=== PATIENT | female | born 1965 | race American Indian/Alaskan Native ===

== ENCOUNTER 2017-06-10 18:47 | Emergency (ER) | payer OTHER ==
[2017-06-10 18:57] VITALS: BP 118/80; PULSE 80; RESP 18; TEMP 98.1; O2SAT 95
[2017-06-10 18:58] VITALS: BMI 26.6
[2017-06-10] MEDS ORDERED: Naproxen 550 mg Tab PO STA (20:17)
--- NOTE | 2017-06-10 20:20 | ED PDOC ---
Arrival/HPI - General Historian: Patient - History of Present Illness Time/Duration: Other (see hpi) Context: Home - General Chief Complaint: ENT Problem Time Seen by Provider: 06/10/17 20:15 - History of Present Illness Narrative History of Present Illness (Text): 06/10/17 20:15 This 51 yo female presents to this Emergency department complaining of right maxillary pain x 2 days. Patient stated she had similar symptoms in the past when she was Dx. with sinusitis. Patient stated pain radiates to her right ear. Patient denies headache, sore throat, or dental pain. Denies fever, sob, cp or abdominal pain. (Ronnie Jose) Past Medical History - Provider Review Nursing Documentation Reviewed: Yes - Infectious Disease Hx of Infectious Diseases: None - Tetanus Immunization Tetanus Immunization: Unknown - Past Medical History Past Medical History: No Previous - Psychiatric Hx Substance Use: No Other/Comment: attention deficit - Surgical History Hx Orthopedic Surgery: Yes (foot) Other/Comment: nose sx - Anesthesia Hx Anesthesia: Yes Hx Anesthesia Reactions: No Hx Malignant Hyperthermia: No - Suicidal Assessment Feels Threatened In Home Enviroment: No Family/Social History - Physician Review Nursing Documentation Reviewed: Yes Family/Social History: Other (nocontributory) Smoking Status: Never Smoked Hx Alcohol Use: No Hx Substance Use: No Hx Substance Use Treatment: No Allergies/Home Meds Allergies/Adverse Reactions: Allergies No Known Allergies Allergy (Verified 01/31/14 13:23) Home Medications: Home Meds Medication Instructions Recorded Confirmed Amphetamine Salt Combination 10 mg PO TID 01/31/14 10/08/15 [Adderall] Mometasone Furoate [Nasonex] 2 spray LUIS BID 10/08/15 10/08/15 Review of Systems - Review of Systems Constitutional: Normal. absent: Fatigue, Weight Change, Fevers Eyes: Normal ENT: Normal Respiratory: Normal Cardiovascular: Normal Gastrointestinal: Normal Genitourinary Female: Normal Musculoskeletal: Other (see hpi) Skin: Normal Neurological: Normal Endocrine: Normal Hemo/Lymphatic: Normal Psychiatric: Normal Physical Exam Temperature: Afebrile Blood Pressure: Normal Pulse: Regular Respiratory Rate: Normal Appearance: Positive for: Well-Appearing, Non-Toxic, Comfortable Pain Distress: None Mental Status: Positive for: Alert and Oriented X 3 - Systems Exam Head: Present: Atraumatic, Normocephalic, Other ((+) mild right maxillary sinus tenderness. No erythema, or skin rash, no facial swelling) Pupils: Present: PERRL Extroacular Muscles: Present: EOMI Conjunctiva: Present: Normal Ears: Present: Normal, NORMAL TM, Normal Canal. No: Erythema, TM Bulging, Fluid , TM Perf Mouth: Present: Moist Mucous Membranes, Normal Lips, Normal Tounge, Normal Teeth. No: Drooling Pharnyx: Present: Normal. No: ERYTHEMA, EXUDATE, TONSILS ENLARGED Nose (External): Present: Atraumatic Nose (Internal): Present: Normal Inspection Neck: Present: Normal Range of Motion. No: Meningeal Signs, MIDLINE TENDERNESS Respiratory/Chest: Present: Clear to Auscultation, Good Air Exchange, Respiratory Distress, Accessory Muscle Use. No: Wheezes, Rales, Retracting Cardiovascular: Present: Regular Rate and Rhythm, Normal S1, S2. No: Murmurs Abdomen: No: Tenderness Upper Extremity: Present: Normal Inspection, Normal ROM Lower Extremity: Present: Normal Inspection, Normal ROM Neurological: Present: GCS=15, CN II-XII Intact, Speech Normal, Motor Func Grossly Intact, Normal Sensory Function, Normal Cerebellar Funct, Gait Normal Skin: Present: Warm, Dry, Normal Color. No: Rashes Psychiatric: Present: Alert, Oriented x 3, Normal Insight, Normal Concentration Vital Signs Temp Pulse Resp BP Pulse Ox 06/10/17 18:56 98.1 F 80 18 118/80 95 Medical Decision Making Re-evaluation Time: 20:22 Reassessment Condition: Re-examined, Improved ED Course and Treatment: 06/10/17 20:22 Re-evaluation. Patient feels better. Discussed results and plan with patient who expresses understanding. All questions answered and there is agreement with the plan to discharge home with instructions. Patient stable for discharge. Return if symptoms persist or worsen. (Ronnie Jose) - Medication Orders Current Medication Orders: Discontinued Medications Amoxicillin (Amoxil 500 Mg Cap) 500 mg PO STAT STA PRN Reason: Protocol Stop: 06/10/17 20:18 Last Admin: 06/10/17 20:33 Dose: 500 mg Naproxen (Anaprox Ds) 550 mg PO STAT STA Stop: 06/10/17 20:18 Last Admin: 06/10/17 20:33 Dose: 550 mg Disposition/Present on Arrival - Present on Arrival Any Indicators Present on Arrival: No History of DVT/PE: No History of Uncontrolled Diabetes: No Urinary Catheter: No History of Decub. Ulcer: No History Surgical Site Infection Following: None - Disposition Have Diagnosis and Disposition been Completed?: Yes Disposition Time: 20:22 Patient Plan: Discharge - Disposition Diagnosis: Maxillary sinusitis Disposition: HOME/ ROUTINE Condition: GOOD Discharge Instructions (ExitCare): Sinusitis (ED) Additional Instructions: Call private doctor for follow up visit in 1-2 days. make sure to see your ENT on Saturday as scheduled by you. return to emergency if symptoms worsen. Prescriptions: Amoxicillin [Amoxil 500 mg Cap] 500 mg PO TID #30 cap Famotidine [Pepcid] 40 mg PO DAILY #10 tablet Naproxen 500 mg PO BID PRN #14 tab PRN Reason: Pain, Severe (8-10) Referrals: [facility] Philomena Matthews, [Non-Staff] - Follow up with primary Shayan Dixon DO [Doctor Osteopathy] - Follow up with primary Forms: Take the Interview ([place])
== END 2017-06-10 20:36 | disposition home or self-care (01) ==
LOC: ED 18:47
DX: J32.0 Chronic maxillary sinusitis (principal)

== ENCOUNTER 2017-11-10 01:50 | Emergency (ER) | payer OTHER ==
[2017-11-10 02:08] VITALS: BMI 28.1
[2017-11-10 02:15] VITALS: RESP 18
[2017-11-10] MEDS ORDERED: Sodium Chloride 0.9% 1,000 ML IV STA (02:19)
--- NOTE | 2017-11-10 02:19 | ED PDOC ---
Arrival/HPI - General Chief Complaint: Weakness/Neurological Deficit Time Seen by Provider: 11/10/17 01:59 Historian: Patient - History of Present Illness Narrative History of Present Illness (Text): 11/10/17 02:14 52 year old female, with no significant past medical, presents to the emergency department complaining of generalized malaise that began this morning. Patient states she had a tuna fish sandwich earlier which she feels may have provided her symptoms. Patient also states she felt slightly dizzy earlier and her mouth feels dry. Patient reports nausea and diarrhea, but denies any fever, chills, chest pain, shortness of breath, urinary symptoms, back pain, neck pain, headache, or any other complaints. PMD: Dr. Abram Carney Symptom Onset: Gradual Symptom Course: Unchanged Activities at Onset: Light Context: Home Past Medical History - Provider Review Nursing Documentation Reviewed: Yes - Infectious Disease Hx of Infectious Diseases: None - Tetanus Immunization Tetanus Immunization: Unknown - Past Medical History Past Medical History: No Previous - Psychiatric Hx Substance Use: No Other/Comment: attention deficit - Surgical History Hx Orthopedic Surgery: Yes (foot) Other/Comment: nose sx - Anesthesia Hx Anesthesia: Yes Hx Anesthesia Reactions: No Hx Malignant Hyperthermia: No - Suicidal Assessment Feels Threatened In Home Enviroment: No Family/Social History - Physician Review Nursing Documentation Reviewed: Yes Family/Social History: No Known Family HX Smoking Status: Never Smoked Hx Alcohol Use: No Hx Substance Use: No Hx Substance Use Treatment: No Allergies/Home Meds Allergies/Adverse Reactions: Allergies No Known Allergies Allergy (Verified 11/10/17 02:08) Home Medications: Home Meds Medication Instructions Recorded Confirmed Amphetamine Salt Combination 10 mg PO TID 01/31/14 10/08/15 [Adderall] Mometasone Furoate [Nasonex] 2 spray LUIS BID 10/08/15 10/08/15 Review of Systems - Physician Review All systems were reviewed & negative as marked: Yes - Review of Systems Constitutional: absent: Fevers, Other (Chills) Respiratory: absent: SOB Cardiovascular: absent: Chest Pain Gastrointestinal: Diarrhea, Nausea. absent: Abdominal Pain, Vomiting Genitourinary Female: absent: Dysuria, Frequency, Hematuria Musculoskeletal: Other (generlized malaise ). absent: Back Pain, Neck Pain Neurological: Dizziness. absent: Headache Physical Exam Vital Signs Reviewed: Yes Vital Signs Temp Pulse Resp BP Pulse Ox 11/10/17 04:30 92 H 18 115/78 98 11/10/17 02:13 98.3 F 86 18 119/68 100 Temperature: Afebrile Blood Pressure: Normal Pulse: Regular Respiratory Rate: Normal Appearance: Positive for: Well-Appearing, Non-Toxic, Comfortable Pain Distress: None Mental Status: Positive for: Alert and Oriented X 3 - Systems Exam Head: Present: Atraumatic, Normocephalic Pupils: Present: PERRL Extroacular Muscles: Present: EOMI Conjunctiva: Present: Normal Mouth: Present: Moist Mucous Membranes Neck: Present: Normal Range of Motion Respiratory/Chest: Present: Clear to Auscultation, Good Air Exchange. No: Respiratory Distress, Accessory Muscle Use Cardiovascular: Present: Regular Rate and Rhythm, Normal S1, S2. No: Murmurs Abdomen: No: Tenderness, Distention, Peritoneal Signs Back: Present: Normal Inspection Upper Extremity: Present: Normal Inspection. No: Cyanosis, Edema Lower Extremity: Present: Normal Inspection. No: Edema Neurological: Present: GCS=15, CN II-XII Intact, Speech Normal Skin: Present: Warm, Dry, Normal Color. No: Rashes Psychiatric: Present: Alert, Oriented x 3, Normal Insight, Normal Concentration Medical Decision Making ED Course and Treatment: 11/10/17 02:14 Impression: 52 year old female presents complaining of generalized malaise that began this morning associated with slight dizziness, nausea, diarrhea, and mouth feels dry. Plan: -- Labs -- Gluxose, POC Routine -- Pepcid, IV Fluids, Zofran Inj -- EKG -- Reassess and disposition Progress Notes: 11/10/17 02:00 EKG shows NSR at 85 BPM with no acute changes. Interpreted by me. 11/10/17 05:49 On reevaluation the patient feels better and is in no acute distress. I have discussed the results and plan with the patient, who expresses understanding. Patient given the opportunity to ask question, all questions were answered and there is agreement with the plan to discharge the patient home. Patient is stable for discharge. Patient was instructed to follow up with physician/clinic or return if symptoms persist/worsen or new concerning symptoms arise. - Lab Interpretations Lab Results: 11/10/17 03:00 11/10/17 03:00 Lab Results 11/10/17 03:00: WBC 8.4, RBC 4.87, Hgb 14.3, Hct 42.2, MCV 86.7, MCH 29.4, MCHC 33.9, RDW 13.5, Plt Count 235, MPV 9.7 11/10/17 03:00: Sodium 142, Potassium 5.1 H, Chloride 107, Carbon Dioxide 27, Anion Gap 13, BUN 15, Creatinine 0.8, Est GFR ( Amer) > 60, Est GFR (Non- Af Amer) > 60, Random Glucose 104, Calcium 9.5, Total Bilirubin 0.9, AST 26, ALT 41, Alkaline Phosphatase 80, Total Protein 7.2, Albumin 4.3, Globulin 2.9, Albumin/Globulin Ratio 1.5, Lipase 72 11/10/17 02:23: POC Glucose (mg/dL) 74 I have reviewed the lab results: Yes - EKG Interpretation Interpreted by ED Physician: Yes Type: 12 lead EKG - Medication Orders Current Medication Orders: Discontinued Medications Famotidine (Pepcid) 20 mg IVP STAT STA Stop: 11/10/17 02:20 Last Admin: 11/10/17 02:22 Dose: 20 mg IVP Administration Document 11/10/17 02:22 (Rec: 11/10/17 03:17 [facility] [id number]) Charges for Administration # of IVP Administrations 1 Sodium Chloride (Sodium Chloride 0.9%) 1,000 mls @ 999 mls/hr IV .Q1H1M STA Stop: 11/10/17 03:19 Last Admin: 11/10/17 02:27 Dose: 999 mls/hr eMAR Start Stop Document 11/10/17 02:27 (Rec: 11/10/17 03:24 [facility] [id number]) Intravenous Solution Start Date 11/10/17 Start Time 02:27 Ondansetron HCl (Zofran Inj) 4 mg IVP ONCE ONE Stop: 11/10/17 02:20 Last Admin: 11/10/17 02:20 Dose: 4 mg IVP Administration Document 11/10/17 02:20 (Rec: 11/10/17 03:16 [facility] [id number]) Charges for Administration # of IVP Administrations 1 Ondansetron HCl (Zofran Inj) 4 mg IVP ONCE ONE Stop: 11/10/17 05:16 Last Admin: 11/10/17 05:18 Dose: 4 mg IVP Administration Document 11/10/17 05:18 CANDACE (Rec: 11/10/17 05:52 [facility] [id number] Charges for Administration # of IVP Administrations 1 - Scribe Statement The provider has reviewed the documentation as recorded by the Akhilibsierra Rhoades Provider Scribe Attestation: All medical record entries made by the Scribe were at my direction and personally dictated by me. I have reviewed the chart and agree that the record accurately reflects my personal performance of the history, physical exam, medical decision making, and the department course for this patient. I have also personally directed, reviewed, and agree with the discharge instructions and disposition. Disposition/Present on Arrival - Present on Arrival Any Indicators Present on Arrival: No History of DVT/PE: No History of Uncontrolled Diabetes: No Urinary Catheter: No History of Decub. Ulcer: No History Surgical Site Infection Following: None - Disposition Have Diagnosis and Disposition been Completed?: Yes Diagnosis: Gastroenteritis Disposition: HOME/ ROUTINE Disposition Time: 05:49 Patient Plan: Discharge Patient Problems: Current Active Problems Problem Status Onset Gastroenteritis Acute Condition: GOOD Additional Instructions: Drink small amounts of liquids at a time/take meds as prescribed/advance to bland diet slowly as tolerated/follow up with your doctor/any recurrent severe symptoms return to the emergency room Prescriptions: Ondansetron [Zofran Odt] 4 mg PO Q6 PRN #12 odt PRN Reason: Nausea/Vomiting Referrals: [id number] [Other] - Follow up with primary Forms: [employer] (Azeri)
[2017-11-10 03:14] LABS: HEMOGLOBIN 14.3 g/dL (12.0-16.0); MEAN CELL VOLUME 86.7 fl (80.0-105.0); MEAN CORPUSCULAR HEMOGLOBIN 29.4 pg (25.0-35.0); MEAN CORPUSCULAR HGB CONC 33.9 g/dl (31.0-37.0); MEAN PLATELET VOLUME 9.7 fl (7.0-11.0); RBC 4.87 10^6/uL (3.5-6.1); RED CELL DISTRIBUTION WIDTH 13.5 % (11.5-14.5); WHITE BLOOD COUNT 8.4 10^3/ul (4.5-11.0)
[2017-11-10 03:19] LABS: ALB/GLOB RATIO 1.5 (1.1-1.8); ALBUMIN 4.3 g/dL (3.0-4.8); ALT/SGPT 41 U/L (7-56); AST/SGOT 26 U/L (14-36); BLOOD UREA NITROGEN 15 mg/dL (7-21); CALCIUM 9.5 mg/dL (8.4-10.5); GFR AFRICAN-AMERICAN > 60; GFR NON-AFRICAN AMERICAN > 60; LIPASE 72 U/L (23-300)
[2017-11-10 06:19] VITALS: BP 118/68; PULSE 89; TEMP 98.6; O2SAT 96
--- NOTE | 2017-11-10 17:03 | CARD ---
APPROVED REPORT Date of service: 11/10/2017 EKG Measurement Heart [id number] <Conclusion> Normal sinus rhythm Normal ECG
== END 2017-11-10 06:24 | disposition home or self-care (01) ==
LOC: ED 01:50
DX: K52.9 Noninfective gastroenteritis and colitis, unspecified (principal)
CPT/HCPCS: 80053; 82948; 83690; 85027; 93005; 96374; 96375; 96376; 99285; J2405; J7030

== ENCOUNTER 2018-02-28 23:02 | Emergency (ER) | payer OTHER ==
[2018-02-28 23:20] VITALS: TEMP 98.2; BMI 28.5
[2018-02-28] MEDS ORDERED: DiphenhydrAMINE 50 mg/ml Inj IVP STA (23:33)
--- NOTE | 2018-02-28 23:37 | ED PDOC ---
Arrival/HPI - General Chief Complaint: Abnormal Skin Integrity Time Seen by Provider: 02/28/18 23:33 Historian: Patient - History of Present Illness Narrative History of Present Illness (Text): 02/28/18 23:36 52 yo F reports acute onset of diffuse erythematous pruritic rash to her entire body sparing her face, palms and soles x 1 day, which started abruptly. Otherwise patient reports (-) throat swelling, (-) tongue / lip swelling, (-) dyspnea, (-) cough, (-) wheezing, (-) abdominal pain, (-) nausea (-) vomiting. There has been no known exposure to any allergens, however the patient admits to eating Halloween candy x 2-3 days. The patient has no history of allergic reactions. PMD Rommel Past Medical History - Infectious Disease Hx of Infectious Diseases: None - Tetanus Immunization Tetanus Immunization: Unknown - Past Medical History Past Medical History: No Previous - Cardiac Hx Cardiac Disorders: No - Pulmonary Hx Respiratory Disorders: No - Neurological Hx Neurological Disorder: No - HEENT Hx HEENT Disorder: No - Renal Hx Renal Disorder: No - Endocrine/Metabolic Hx Endocrine Disorders: No - Hematological/Oncological Hx Blood Disorders: No - Integumentary Hx Dermatological Disorder: No - Musculoskeletal/Rheumatological Hx Musculoskeletal Disorders: No - Gastrointestinal Hx Gastrointestinal Disorders: No - Genitourinary/Gynecological Hx Genitourinary Disorders: No - Psychiatric Hx Psychophysiologic Disorder: Yes Hx Substance Use: No Other/Comment: attention deficit - Surgical History Hx Orthopedic Surgery: Yes (foot) Other/Comment: nose sx - Anesthesia Hx Anesthesia: Yes Hx Anesthesia Reactions: No Hx Malignant Hyperthermia: No - Suicidal Assessment Feels Threatened In Home Enviroment: No Family/Social History Family/Social History: No Known Family HX Smoking Status: Never Smoked Hx Alcohol Use: No Hx Substance Use: No Hx Substance Use Treatment: No Allergies/Home Meds Allergies/Adverse Reactions: Allergies No Known Allergies Allergy (Verified 02/28/18 23:20) Home Medications: Home Meds Medication Instructions Recorded Confirmed Amphetamine Salt Combination 10 mg PO DAILY 02/28/18 02/28/18 [Adderall] Review of Systems - Review of Systems Constitutional: absent: Fatigue, Fevers Respiratory: absent: SOB, Cough Cardiovascular: absent: Chest Pain, Palpitations Gastrointestinal: absent: Abdominal Pain, Diarrhea, Vomiting Musculoskeletal: absent: Arthralgias, Back Pain, Neck Pain Skin: Rash, Pruritis. absent: Skin Lesions Physical Exam Vital Signs Temp Pulse Resp BP Pulse Ox 02/28/18 23:18 98.2 F 74 18 108/74 96 Temperature: Afebrile Blood Pressure: Normal Pulse: Regular Respiratory Rate: Normal Appearance: Positive for: Well-Appearing, Non-Toxic, Comfortable Pain Distress: None Mental Status: Positive for: Alert and Oriented X 3 - Systems Exam Head: Present: Atraumatic, Normocephalic Pupils: Present: PERRL Extroacular Muscles: Present: EOMI Conjunctiva: Present: Normal Mouth: Present: Moist Mucous Membranes Neck: Present: Normal Range of Motion Respiratory/Chest: Present: Clear to Auscultation, Good Air Exchange. No: Respiratory Distress, Accessory Muscle Use Cardiovascular: Present: Regular Rate and Rhythm, Normal S1, S2. No: Murmurs Abdomen: No: Tenderness, Distention, Peritoneal Signs Back: Present: Normal Inspection Upper Extremity: Present: Normal Inspection. No: Cyanosis, Edema Lower Extremity: Present: Normal Inspection. No: Edema Neurological: Present: GCS=15, CN II-XII Intact, Speech Normal Skin: Present: Warm, Dry, Rashes (+urticarial rash to the trunk and all 4 extrem ities), Normal Color Psychiatric: Present: Alert, Oriented x 3, Normal Insight, Normal Concentration Medical Decision Making ED Course and Treatment: 02/28/18 23:34 Plan : - benadryl IV - solumedrol IV - pepcid IV On reevaluation, patient reports improvement of symptoms, denies any SOB, facial or throat swelling. On exam, patient remains awake alert and oriented 3 in no acute distress with noted improvement of rash on exam. Advised to follow up with primary care physician in 1-2 days without fail. Advised to take medication as prescribed. Return to the emergency room at any time for any new or worsening symptoms. Patient states she fully agrees with and understands discharge instructions. States that she agrees with the plan and disposition. Verbalized and repeated discharge instructions and plan. I have given the patient opportunity to ask any additional questions. - PA / RELEASE SPECIALIST / Resident Statement MD/DO has reviewed & agrees with the documentation as recorded. Disposition/Present on Arrival - Present on Arrival Any Indicators Present on Arrival: No History of DVT/PE: No History of Uncontrolled Diabetes: No Urinary Catheter: No History of Decub. Ulcer: No History Surgical Site Infection Following: None - Disposition Have Diagnosis and Disposition been Completed?: Yes Diagnosis: Urticaria Disposition: HOME/ ROUTINE Disposition Time: 00:00 Patient Plan: Discharge Condition: STABLE Discharge Instructions (ExitCare): Bryanna (NEELA) Additional Instructions: Thank you for letting us take care of you today. You were treated for urticaria. The emergency medical care you received today was directed at your acute symptoms. If you were prescribed any medication, please fill it and take as directed. It may take several days for your symptoms to resolve. Return to the Emergency Department if your symptoms worsen, do not improve, or if you have any other problems. Please contact your doctor in 2 days for re-evaluation and follow up / or call one of the physicians/clinics you have been referred to that are listed on the Patient Visit Information form that is included in your discharge packet. Bring any paperwork you were given at discharge with you along with any medications you are taking to your follow up visit. Our treatment cannot replace ongoing medical care by a primary care provider (PCP) outside of the emergency department. Thank you for allowing the [facility] team to be part of your care today. Prescriptions: DiphenhydrAMINE [Benadryl] 25 mg PO TID #20 cap Famotidine [Pepcid] 40 mg PO DAILY #20 tablet predniSONE [predniSONE Tab] 40 mg PO DAILY #8 tab Referrals: Idania Fontanez MD [Staff Provider] - Follow up with primary Forms: [employer] (Yakut), WORK NOTE
[2018-03-01 00:39] VITALS: BP 117/67; PULSE 62; RESP 17; O2SAT 100
== END 2018-03-01 00:35 | disposition home or self-care (01) ==
LOC: ED 23:02
DX: L50.9 Urticaria, unspecified (principal)
CPT/HCPCS: 96374; 96375; 99283; J1200; J2930